=== PATIENT | female | born 1975 | race Caucasian/White ===

== ENCOUNTER → 2025-03-13 | Outpatient (REF) ==
[~2025-03-13] MED LIST: BACITAB PO; CLEO300C2 PO; DEPA500T2 PO; FOLI1TAB11 PO; IBUP600T42 PO; MULTCAP PO; NUCY75TA11 PO; PROZ20CA12 PO; ULTR50TA8 PO
== END ==
LOC: M PLAIMG 09:56
PROVIDERS: ATTEND Internal Medicine
DX: Z01.89 Encounter for other specified special examinations (principal)